=== PATIENT | female | born 1990 | race Two or more races ===

== ENCOUNTER 2024-06-21 14:52 | Emergency (ER) | payer BC, SELFPAY ==
--- NOTE | 2024-06-21 15:14 | XR_ITS ---
Examination: PA lateral chest 2 views TECHNIQUE: Upright PA lateral chest 2 views Exam date and time: June 21, 2024 1520 hours INDICATIONS: Chest tightness beginning 4 days ago difficulty talking FINDINGS: Normal heart size. Lungs are clear. The osseous structures are intact IMPRESSION: No active disease
--- NOTE | 2024-06-21 15:14 | EKG_ITS ---
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
[2024-06-21 15:28] VITALS: BP 120/75; PULSE 86; RESP 16; TEMP 37.1; O2SAT 100; BMI 28.1
--- NOTE | 2024-06-21 15:37 | PD.EDRME ---
Rapid Medical Screening Exam RME Arrival date/time: 06/21/24 14:52 34-year-old female presents emergency department complaints of anxiety and chest pain ongoing since Tuesday Chief Complaint: Chest Pain Time Seen by Provider: 06/21/24 15:29 Vital signs: Vital Signs Temperature 98.8 F 06/21/24 15:28 Pulse Rate 86 06/21/24 15:28 Respiratory Rate 16 06/21/24 15:28 Blood Pressure 120/75 06/21/24 15:28 Pulse Oximetry (%) 100 06/21/24 15:28 Oxygen Delivery Method Room Air 06/21/24 15:28
[2024-06-21 16:00] LABS: Basophils % (Auto) 0 % (0-2.5); Eosinophils % (Auto) 0 % (0-10); Hematocrit 37.5 % (36.0-46.0); Hemoglobin 12.5 g/dL (12.0-16.0); Immature Granulocytes % (Auto) 0 % (0-0); Immature Granulocytes Auto 0.01 Thou/mm3 (0.00-0.00); Lymphocytes # (Auto) 2.3 Thou/mm3 (1.0-4.8); Lymphocytes % (Auto) 25 % (10-50); Mean Corpuscular HGB Conc 33.3 g/dl (31.0-37.0); Mean Corpuscular Hemoglobin 27.8 pg (25.0-35.0); Mean Corpuscular Volume 84 fL (80-100); Monocytes # (Auto) 0.7 Thou/mm3 (0.0-0.8); Monocytes % (Auto) 8 % (0-12); Neutrophils # (Auto) 6.1 Thou/mm3 (1.8-7.7); Neutrophils % (Auto) 67 % (37-80); Nucleated Red Blood Cell % 0 /100 WBC (0); Platelet Count 237 Thou/mm3 (140-440); RDW Standard Deviation 40.4 fL (36.4-46.3); Red Blood Count 4.49 Miln/mm3 (4.00-5.20); White Blood Count 9.2 Thou/mm3 (3.6-11.0)
[2024-06-21 16:14] LABS: D-Dimer < 250 ng/mL (<600)
[2024-06-21 16:22] LABS: HCG,Qualitative Serum Negative
--- NOTE | 2024-06-21 16:28 | EDNOTE_ITS ---
ED Chest Pain RME/HPI General Chief Complaint: Chest Pain Stated Complaint: CHEST TIGHTNESS X TUESDAY; DIFFICULTY TALKING Time Seen by Provider: 06/21/24 15:29 Arrival date/time: 06/21/24 14:52 RME / HPI RME / HPI narrative: 06/21/24 14:52 34-year-old female presents emergency department complaints of anxiety and chest pain ongoing since Tuesday This section includes all my notes and documentations, including HPI, PE, and ED course.? Jony Genao MD HPI: 34 year old female with no stated medical history presents to the ED for evaluation of chest tightness accompanied by feeling short of breath beginning today. Reports symptoms are worse while talking and at this time rates pain a 3/10 in severity. Denies any history of similar pain. Denies fevers, chills, sweats, cough, abdominal pain, n/v. No other complaints. ROS: All negative except as documented in HPI. Physical Exam: General:? Alert and oriented.? No acute distress when remaining still.?? Eyes:? Conjunctivae and lids clear.? ENT:? No nasal congestion.? Neck:? Supple.? Heart:? RRR.? Lungs:? No respiratory distress.? Good air movement.? No rhonchi, wheezing, rales.?? Abdomen:? Soft and nontender.?? Legs:? No clubbing, cyanosis, edema.? Skin:? Warm and dry.?? Neuro:? Alert and oriented X 3.?? I reviewed all diagnostic test results. My interpretation of the EKG is? My interpretation of the chest x-ray is no acute process. Blood tests and urine tests? At this point, diagnoses include?palpitations. Treatment here included? Significant improvement Based on my best medical judgment, made decision no further evaluation or treatment indicated at this time.? Patient understands and agrees to the discharge instructions customized and printed, see below. Jony Genao MD Discharge instructions from Dr. Genao: 1. After extensive evaluation, there is no life-threatening condition.? Such as heart attack or pulmonary embolism (blood clots in your lungs) or pneumothorax (collapsed lung). 2. Your symptoms may be due to underlying stress or anxiety or nerves.? This is fairly common. 3. Take Xanax as needed.? Whether this helps or not will be valuable information to your private doctors. 4. See a private doctor on 06/25/2024. To make sure there is no serious underlying heart condition, ask to help you get more tests for your heart that cannot be done here in the ER.? Such as Holter Monitor (cardiac monitoring at home from a day to even a month), heart stress test (on treadmill or with medication), echocardiogram (imaging of your heart structures), heart catherization (checking for blockages in your heart arteries), and a referral to see a Natural Resources Instructor. 5. Seek immediate medical care with worsening or with any concerns.?? Related Data Previous Rx's ?Medication ?Instructions ?Recorded tramadol 50 mg tablet 50 mg PO Q8H PRN pain #10 tabs 12/14/23 alprazolam 0.5 mg tablet (Xanax) 0.5 mg PO BID PRN anxiety #20 tabs 06/21/24 Allergies Allergy/AdvReac Type Severity Reaction Status Date / Time No Known Allergies Allergy Verified 06/21/24 14:54 Review of Systems Review of Systems Systems Reviewed: All systems reviewed, normal except as documented Past Medical History Past Medical History REPRODUCTIVE: Positive Previous Pregnancies OTHER HISTORY: Positive Hospitalization (CHILDBIRTH) Family History FAMILY HISTORY: Positive Family Cardiac Disorders (sister and mother HTN), Family Gastrointestinal Problems (mother and sister- cholecystectomy.), Family Cancer (ovarian ca-sister, COLON CA-SISTER) and Family Surgery (removal ovarian ca-sister) Surgical History SURGICAL: Positive Section (x2) Social History SMOKING STATUS: Never smoker ED Exam Narrative Physical exam: As noted in HPI Course Course Course Narrative: chest xray ordered to help determine etiology of chest pain. Quality Measures none Orders Category Date Time Status EKG (ED ONLY) *Do not use* NOW Care 06/21/24 15:14 Completed EKG (ED Only) Stat Exams 06/21/24 15:14 Draft XR chest 2V Stat Exams 06/21/24 15:14 Completed BNP [B-Type Natriuretic Peptide] Stat Lab 06/21/24 15:42 Completed CBC Stat Lab 06/21/24 15:42 Completed Comprehensive Metabolic Panel Stat Lab 06/21/24 15:42 Completed D-Dimer Stat Lab 06/21/24 15:42 Completed HCG,Qualitative Serum Stat Lab 06/21/24 15:42 Completed Magnesium Stat Lab 06/21/24 15:42 Completed Thyroid Stimulating Hormone Stat Lab 06/21/24 15:42 Completed Troponin I Stat Lab 06/21/24 15:42 Completed Metoprolol Tartrate [Lopressor] Med 06/21/24 16:19 Discontinued 25 mg PO X1 ONE Vital Signs Vital signs: Vital Signs Temperature 98.8 F 06/21/24 15:28 Pulse Rate 86 06/21/24 15:28 Respiratory Rate 16 06/21/24 15:28 Blood Pressure 120/75 06/21/24 15:28 Pulse Oximetry (%) 100 06/21/24 15:28 Oxygen Delivery Method Room Air 06/21/24 15:28 Pulse ox is 100% on room air which is adequate. Chest Pain MDM Narrative MDM Narrative:: Christine Hess am scribing for and in the presence of Dr. Genao. Patient data External records reviewed:: [facility] previous records (I reviewed H&P on 12/14/2023) Clinical information provided by:: patient Social determinants that could affect healthcare access:: none Patient has the following chronic illnesses:: None reported How is presenting disease/condition affected by chronic disease/condition?: no chronic disease Evaluation data The following diagnostics were reviewed and interpreted by me:: lab results Lab and/or radiology exams considered but not ordered:: None Interpretation Summary: Chest xray shows no acute process. Medications / Prescriptions Medications or Prescriptions considered but not ordered:: None Medication administrations:: Medication Administration History Discontinued Medications Metoprolol Tartrate (Metoprolol Tartrate 25 Mg Tablet) 25 mg PO X1 ONE Stop: 06/21/24 16:20 Patient given metropolol Consultations Consultation(s) initiated? (list below): No Diagnosis Chest Pain Differential Diagnosis: fracture of rib, pneumothorax, stable angina, atypical chest pain, st elevation myocardial infarction, costochondritis, chest pain, biliary colic and other (Anxiety ) Most likely diagnosis given after review of the tests above:: Palpitations Admission Indicated Admission indicated?: not indicated Explain why admission is indicated or not indicated:: Does not meet admission criteria. Admission Request Was there a request for admission?: No Disposition Plan Disposition Plan: Discharge Discharge Attestation Discharge Attestation: The patient and all family members were given an opportunity to ask questions and understood the discharge instructions. Discharge instructions specifically effects, indications for sooner follow up or return to the emergency department, and the expected course of current diagnosis. Patient condition: Stable Discharge Plan Plan Patient Disposition: HOME (Self Care) Prescriptions/Referrals Prescriptions/Med Rec: New alprazolam [Xanax] 0.5 mg tablet 0.5 mg PO BID PRN (Reason: anxiety) Qty: 20 0RF No Action tramadol 50 mg tablet 50 mg PO Q8H PRN (Reason: pain) Qty: 10 0RF Referrals: Zeke Pruett MD [Primary Care Provider] - In 1 week Problem List Clinical Impression: Palpitations Patient/Caregiver Discharge Instructions Discharge Activity: activity as tolerated Education Materials: ED Anxiety Reaction, ED Panic Attack Additional Instructions: Discharge instructions from Dr. Genao: 1. After extensive evaluation, there is no life-threatening condition.? Such as heart attack or pulmonary embolism (blood clots in your lungs) or pneumothorax (collapsed lung). 2. Your symptoms may be due to underlying stress or anxiety or nerves.? This is fairly common. 3. Take Xanax as needed.? Whether this helps or not will be valuable information to your private doctors. 4. See a private doctor on 06/25/2024. To make sure there is no serious underlying heart condition, ask to help you get more tests for your heart that cannot be done here in the ER.? Such as Holter Monitor (cardiac monitoring at home from a day to even a month), heart stress test (on treadmill or with medication), echocardiogram (imaging of your heart structures), heart catherization (checking for blockages in your heart arteries), and a referral to see a Natural Resources Instructor. 5. Seek immediate medical care with worsening or with any concerns.?? Print Language: Divehi Stand Alone Forms: [employer]ore Award Info., Patient Portal Info Letter
[2024-06-21 16:36] LABS: Alanine Aminotransferase 10 U/L (10-49); Albumin, Serum 4.7 gm/dL (3.5-5.0); Albumin/Globulin Ratio 1.5 (1.2-2.2); Alkaline Phosphatase 73 U/L (46-116); Anion Gap 10 (7-16); Aspartate Amino Transferase 12 U/L (0-34); BUN/Creatinine Ratio 18 Ratio (12-20); Bilirubin,Total 0.7 mg/dL (0.3-1.2); Blood Urea Nitrogen 11 mg/dL (9-23); Calcium 9.2 mg/dL (8.3-10.6); Calcium (Corrected) 9.2 mg/dL (8.5-10.1); Carbon Dioxide 24.2 mMol/L (20.0-31.0); Chloride 103 mMol/L (98-107); Creatinine (Component) 0.6 mg/dL (0.6-1.3); Estimated Creatinine Clearance 129.3 mL/min (>60); Globulin 3.2 gm/dL (2.3-3.5); Glucose 90 mg/dL (74-106); Magnesium 2.1 mg/dL (1.6-2.6); Osmolality,Calculated 273 (275-295); Potassium 3.4 mMol/L (3.4-5.1); Sodium 137 mMol/L (136-145); Thyroid Stimulating Hormone 1.14 uIU/mL (0.55-4.78); Total Protein 7.9 gm/dL (5.7-8.2); Troponin I < 0.002 ng/mL (0.0-0.045); eGFR > 60 See Note
[2024-06-21 16:51] LABS: B-Type Natriuretic Peptide < 20 pg/mL (0-100)
[2024-06-21 17:11] VITALS: BP 120/75; PULSE 86
[2024-06-21] MEDS: METOPROLOL TARTRATE 25 MG TABLET PO (17:11)
== END 2024-06-21 17:44 | disposition home or self-care (01) ==
PROVIDERS: Nurse Practitioner Primary Care; Emergency Provider Emergency Medicine; PCP Internal Medicine
DX: R00.2 Palpitations (principal); F41.9 Anxiety disorder, unspecified
CPT/HCPCS: 36415; 71046; 80053; 83735; 83880; 84443; 84484; 84703; 85025; 85379; 93005; 99283; A9270